=== PATIENT | female | born 1965 | race Caucasian/White ===

== ENCOUNTER → 2022-07-22 11:21 | Outpatient (CLI) | payer OTHER, SELFPAY ==
--- NOTE | ~2022-07-22 | US_ITS ---
Pelvic ultrasound. Clinical History: Postmenopausal bleeding Technique: Realtime transabdominal and transvaginal scanning of the pelvis was performed. Color flow Doppler and Doppler spectral analysis were performed. Findings: The uterus is anteverted. The endometrial stripe has a thickness of 7 mm. No focal mass is identified. Neither ovary seen. No adnexal mass seen. There is no evidence of free fluid in the cul de sac. Impression: Minimal thickening of the individual stripe to 7 mm. Additional workup to evaluate for endometrial hy perplasia versus endometrial neoplasm is advised. Reviewed, dictated and finalized at location [facility]. [facility] Impression: Minimal thickening of the individual stripe to 7 mm. Additional workup to evalu ate for endometrial hyperplasia versus endometrial neoplasm is advised.
== END ==
PROVIDERS: PCP Obstetrics & Gynecology Gynecology; Visit Provider Obstetrics & Gynecology Gynecology
DX: N95.0 Postmenopausal bleeding (principal)
CPT/HCPCS: 76830

== ENCOUNTER 2022-08-11 01:01 | Day surgery (SDC) | payer OTHER, SELFPAY ==
[2022-08-06 09:15] VITALS: BMI 40.8
--- NOTE | 2022-08-06 09:20 | PC.NURSE ---
Report to the Outpatient Waiting Room, entrance under the green pavilion located off [facility], at time 0900 on date 08/11/22. Planned Procedure Time: 1100. Time changes happen often and if your time is changed the preop area will call you the afternoon before. - You and your visitor will be asked to self-screen and do not enter if you have any COVID symptoms. - Only one visitor is requested with a max of two and NO children visitors are allowed at this time. - The patient visitor may be requested to leave or wait in car when not with patient due to distancing restrictions. - A mask is optional within the hospital at this time. Patients may have clear liquids (water, carbonated beverages, clear teas, apple juice) until 3 hours prior to surgery with a maximum of 20 ounces. - No food from midnight until time of surgery Take the following medications with a SIP of water the morning of surgery: INHALER IF NEEDED DO NOT STOP ANY OF YOUR OTHER PRESCRIPTION MEDICATIONS PRIOR TO SURGERY EXCEPT THE FOLLOWING Medications to discontinue per physician: VITAMINS/SUPPLEMENTS Date to take last dose: 08/07/22 Please no make-up, nail vietnamese, hairspray, perfume, deodorant, or body powder the day of surgery. No jewelry (including any body piercings) or valuables the day of surgery, leave them at home. Please take a shower or bath the night before, or the morning of, surgery with an antibacterial soap. Wear comfortable, loose fitting clothing. - Jewelry must be removed prior to entering the operating room. Rings and piercings that are not removed may be cut off. - The hospital will not accept responsibility for valuables. - Please leave all valuables, including medications, at home the day of surgery. If you are going home after surgery, a licensed water truck driver must drive you home. - NO public transportation without another adult if you receive anesthesia. - We recommend that an adult stay with you for 24 hours following discharge. - We also recommend that you do not drive, make important decision, drink alcoholic beverages, or take any drugs that were not prescribed by your health care provider for at least 24 hours after your discharge time. Follow any additional instructions given to you from your surgeon. If you or anyone in your household have experienced Covid symptoms in the past week, please notify your surgeon or the nurse liaison at the phone number below for possible testing. Telephone instructions given to PT - MADISON MUNOZ and asked if any additional questions and then verbalized understanding. Patient advised to call surgeon office or pre surgery nurse liaison [phone] if any additional questions.
--- NOTE | 2022-08-11 08:16 | WPDHPUPDATE1 ---
History and Physical Update Update Date/Time: 08/11/22 08:16 History and Physical has been reviewed, including an updated exam of the patient. There are NO changes in the patient's condition. Risks, benefits, and alternatives have been discussed and questions answered. Patient agrees to proceed with procedure.
--- NOTE | 2022-08-11 08:16 | PM.HPGS ---
History of Present Illness History of Present Illness Consent: Risks, benefits, and alternatives have been discussed and questions answered. Patient agrees to proceed with procedure. Chief complaint: post menopausal bleeding Narrative: Candida aGrcia is a 56 year old female with postmenopausal bleeding April of 2022. The patient had 5 days of bleeding began cramping. The patient presented as a new patient July 22, 2022. The pelvic exam revealed a normal exam except for a pinpoint cervical os. Pelvic ultrasound was performed and reveals the endometrium to be thickened at 7mm. It was recommended at that time to proceed with D&C hysteroscopy. Risks of infection, bleeding, perforation, fluid imbalance, and possible pathology are reviewed. Patient voices understanding and agrees to proceed. Review of Systems Review of Systems: not repeated day of surgery; patient states no changes in status PMFSH Past Medical History Medical History (Updated 08/11/22 @ 08:20 by Eda Cisse MD) Asthma Borderline diabetic Depression with anxiety Surgical History Surgical History (Updated 08/11/22 @ 08:19 by Eda Cisse MD) History of x2 History of laparoscopic cholecystectomy Social History Social History Smoking status: Current every day smoker Tobacco type: e-cigarettes/vaping Alcohol intake: current Alcohol use details: VERY RARE Substance use: current Substance use type: marijuana Living arrangements: with family Spiritual care concerns: No Meds Home Medications and Allergies Home Medications Medication Instructions Recorded Confirmed Type albuterol sulfate 90 mcg/actuation 1 puff inhalation QID PRN 08/06/22 08/06/22 History aerosol inhaler Bronchospasm calcium carbonate 500 mg calcium 500 mg PO DAILY 08/06/22 08/06/22 History (1,250 mg) tablet magnesium 250 mg tablet 250 mg PO DAILY 08/06/22 08/06/22 History montelukast 10 mg tablet 10 mg PO DAILY PRN Allergy Symptoms 08/06/22 08/06/22 History (Singulair) zinc gluconate 100 mg tablet 100 mg PO DAILY 08/06/22 08/06/22 History Allergies Allergy/AdvReac Type Severity Reaction Status Date / Time azithromycin Allergy Severe Anaphylaxis Verified 08/11/22 07:06 Exam Const: General: healthy appearing and alert Orientation/consciousness: patient oriented x3 Resp: Effort & Inspection: normal respiratory effort GI: GI Palp: Yes Soft to palpation, No Tenderness to palpation present (GI) and No Palpable mass present : External Female Exam: normal external appearance Speculum Exam - Vagina: normal appearance of the vagina and normal vaginal discharge Speculum Exam - Cervix: normal appearance of the cervix Bimanual exam- vagina & uterus: uterine size normal and consistency normal Bimanual Exam- Adnexa, other: normal adnexae and No adnexal tenderness Neuro: General: patient oriented x3 Assessment and Plan Assessment and plan (1) Post-menopausal bleeding: Code(s): N95.0 - Postmenopausal bleeding Status: Acute Assessment and Plan: plan to proceed with D&C hysteroscopy
[2022-08-11 09:08] VITALS: BP 127/58; PULSE 62; RESP 18; TEMP 36.2; O2SAT 97
[2022-08-11] MEDS: ACETAMINOPHEN 500 MG TABLET 1000 MG PO (09:31)
[2022-08-11] MEDS: LACTATED RINGERS 1,000 ML 30 ML IV CONT (09:40)
--- NOTE | 2022-08-11 10:13 | P.PNAN_ITS ---
Anes - Initial Pre Proc Eval Procedure: Operation Date: 08/11/22 11:00 Proposed Procedures p Hysteroscopy, Dilation and Curettage - Eda Cisse MD Date/Time: 08/11/22 10:13 Surgeon: Eda Cisse MD Pre Op Diagnosis: post menopausal bleeding Patient Data Age: 56 Gender: F Height: 1.61 m Weight: 101.3 kg Last Vital Signs Temp 36.2 C L 08/11/22 09:08 Pulse 62 08/11/22 09:08 Resp 18 08/11/22 09:08 BP 127/58 L 08/11/22 09:08 Pulse Ox 97 08/11/22 09:08 O2 Del Method Room Air 08/11/22 09:08 Allergies Allergy/AdvReac Type Severity Reaction Status Date / Time azithromycin Allergy Severe Anaphylaxis Verified 08/11/22 07:06 Home Medications Medication Instructions Recorded Confirmed Type albuterol sulfate 90 mcg/actuation 1 puff inhalation QID PRN 08/06/22 08/06/22 History aerosol inhaler Bronchospasm calcium carbonate 500 mg calcium 500 mg PO DAILY 08/06/22 08/06/22 History (1,250 mg) tablet magnesium 250 mg tablet 250 mg PO DAILY 08/06/22 08/06/22 History montelukast 10 mg tablet 10 mg PO DAILY PRN Allergy Symptoms 08/06/22 08/06/22 History (Singulair) zinc gluconate 100 mg tablet 100 mg PO DAILY 08/06/22 08/06/22 History Patient hx anesthesia problems: none Family hx anesthesia problems: none Results Review: All pre-operative results and documents have been reviewed as part of the pre- operative evaluation. [facility] Past Medical History Medical History Asthma Borderline diabetic Depression with anxiety Surgical History Surgical History History of x2 History of laparoscopic cholecystectomy Social History Social History Smoking status: Current every day smoker Tobacco type: e-cigarettes/vaping Alcohol intake: current Alcohol use details: VERY RARE Substance use: current Substance use type: marijuana Living arrangements: with family Spiritual care concerns: No Anes - Eval Final PreProcedure Day of Procedure 08/11/22 10:13 Patient weight: obese Heart: regular rate and rhythm Lungs: clear to auscultation Airway: Mallampati scale class II Neurological: alert and oriented Last oral intake: >/= 8 hours ASA classification: III Emergent: no Anesthetic plan: proceed Anesthesia type and monitoring: general GIVS and standard monitoring Results Review: All pre-operative results and documents have been reviewed as part of the pre- operative evaluation. Informed Consent: The patient's anesthetic plan and its attendant risks and benefits were discussed with the patient/family/POA. Questions were solicited and answers provided to the satisfaction of the patient/family/POA.
[2022-08-11] MEDS: KETOROLAC 30 MG/ML VIAL (*BKC) 15 MG IV PUSH (11:20)
[2022-08-11] MEDS: LIDOCAINE HCL 1% PF 30 ML VIAL 10 ML INFILTRATE (11:26)
--- NOTE | 2022-08-11 11:36 | P.OP_ITS ---
Procedure Note - Detailed Date of Procedure 08/11/22 Pre-op Diagnosis post menopausal bleeding Post-op Diagnosis Same Procedure Performed D&C hysteroscopy Surgeon Eda Cisse MD Anesthesia MAC and Local Findings cervix is stenotic; uterus sounds to 10cm; uterus appears grossly normal Description of Procedure The patient is taken to the operating room and placed under anesthesia in the dorsal lithotomy position. She was prepped and draped in usual sterile fashion. Stanford speculum was placed in the vagina and the cervix grasped on the anterior lip with a tenaculum. The cervix is injected in each quadrant with 1% lidocaine. The external os is stenotic. The os Finders are used and the cervix was able to be opened. The uterus was then sounded to 10cm. The cervix is serially dilated to an 8 Hegar. The diagnostic hysteroscope was placed with no abnormalities noted it is removed. The medium sharp curette is used to curette the endometrium until a good uterine cry was noted in all areas. All instruments are removed. Sponge, needle, and instrument counts are correct per the OR staff. The patient is awakened from anesthesia and taken to recovery in stable condition. Estimated Blood Loss 5 Drains No Packing No Pathology Yes ( Endometrial curettings) Complications No immediate complications Condition Stable Disposition PACU
[2022-08-11 11:37] VITALS: BP 135/69; PULSE 54; RESP 14; O2SAT 93
[2022-08-11 12:05] VITALS: BP 143/70; PULSE 41; RESP 14; O2SAT 94
[2022-08-11 12:30] VITALS: BP 138/74; PULSE 50; RESP 14
== END 2022-08-11 12:40 | disposition home or self-care (01) ==
PROVIDERS: Visit Provider Obstetrics & Gynecology Gynecology
PROC: 0U5B8ZZ Destruction of Endometrium, Via Natural or Artificial Opening Endoscopic (ICD-10-PCS; CPT 58563; principal; 2022-08-11 11:00)
DX: N95.0 Postmenopausal bleeding (principal); N85.8 Other specified noninflammatory disorders of uterus; J45.909 Unspecified asthma, uncomplicated; F41.8 Other specified anxiety disorders; F17.290 Nicotine dependence, other tobacco product, uncomplicated; E66.9 Obesity, unspecified; Z68.38 Body mass index [BMI] 38.0-38.9, adult; Z79.51 Long term (current) use of inhaled steroids
CPT/HCPCS: 58558; 88305; A9270; J1885; J2250; J2704; J3010; J7030; J7120

== ENCOUNTER 2024-10-30 09:00 | Emergency (ER) | payer OTHER, SELFPAY ==
--- NOTE | ~2024-10-30 | CT_ITS ---
CT abdomen pelvis w con Ordering provider: Isaac Phelps MD History: 59 years Female with . Abdominal pain . Comparison: None. Technique: CT abdomen and pelvis with IV and without oral contrast. Automated exposure control and it erative reconstruction technique were employed. The dose-length product was 1080.74 mGy-cm. 100 mL Om nipaque 350 was given IV. Findings: VISUALIZED LOWER CHEST: Normal. UPPER ABDOMINAL ORGANS: Liver: Fat infiltration. Hepatomegaly. Gallbladder: Status post cholecystectomy. Ethan hepatis and lesser sac enlarged lymph nodes are noted with the largest measures 2.3 and 1.8 cm. Spleen: Normal. Stomach/duodenum: Normal. Pancreas: Normal. Adrenals: Normal. Kidneys: Small hypodensity seen in the left kidney midpole suggestive of tiny cyst another one is see n in the lower pole. Small cyst is seen in the right kidney midpole. PELVIC ORGANS: The bladder is underfilled. BOWEL AND MESENTERY: Colon: No evidence of diverticulitis. Normal appendix. Small Bowel: Normal. No obstruction. Peritoneum/mesentery: No free air or free fluid. No mesenteric lymphadenopathy. RETROPERITONEUM: Normal aorta. No retroperitoneal lymphadenopathy. Para-aortic lymph node is seen m easuring 1.4 cm. MUSCULOSKELETAL: Superficial soft tissues: Large fat containing hernia is seen in the anterior abdominal wall in the a altagracia of the pelvis. Small defect also seen just above the medial neck. Otherwise, The superficial soft tissues are normal. Bones: Normal spine. Disc protrusion at the level of L4-L5 and L5-S1 is highly suggestive. IMPRESSION: 1. No evidence of appendicitis, diverticulitis or intestinal obstruction. 2. Hepatomegaly. 3. Lymphadenopathy in the ethan hepatis, lesser sac and bilateral atelectatic areas. Clinical correl ation and follow-up advised. Reviewed, dictated and finalized at location A. IMPRESSION: 1. No evidence of appendicitis, diverticulitis or intestinal obstruction. 2. Hepatomegaly. 3. Lymphadenopathy in the ethan hepatis, lesser sac and bilateral atelectatic areas. Clinical correlation and follow-up advised.
--- OUTSIDE RECORDS SUMMARY | 2024-10-30 09:03 | XMS_ITS | Encounter Summary ---
Author Organization [facility] Address [address] [place] [id number] Care Team Providers Care Independent Consultant Name Role Phone Unknown, Notinfile Primary Care Provider Unavail able Reason for Visit * Reason Comments Constipation woke up yesterday wi th abdominal pain, took stool softener. Had BM but still not feeling clear. Experiencing bloating and now diarrhea. Encounter Details Date Type Department Care Team (Late st Contact Info) Description 10/30/2024 8:30 AM CDT Office Visit [facility] at [address] [phone] Kim Arredondo, MARIE [address] [place] [address] [address] [place] [address] Diarrhea, unspecified type (Primary Dx); Abdominal pain; Generalized abdominal tenderness, rebound tenderness presence not specified Social History Tobacco Use Types Packs/Day Years Used Date Smoking Tobacco: Never Assessed Comments Unknown Sex and Gender Information Value Date Recorded Sex Assigned at Not on file Legal Sex Female 7:25 PM CDT Gender Identity Female 03/11/2024 9:34 AM CDT Sexual Orientation Not on file documented as of this encounter Last Filed Vital Signs Vital Sign Reading Time Taken Comments Blood Pressure 136/84 10/30/2024 8:31 AM CDT Pulse 74 10/30/2024 8:31 AM CDT Temperature 36.6 C (97.8 F) 10/30/2024 8:31 AM CDT Respiratory Rate 20 10/30/2024 8:31 AM CDT Oxygen Saturation 99% 10/30/2024 8:31 AM CDT Inhaled Oxygen Concentration - - Weight 99.8 kg (220 lb) 10/30/2024 8:31 AM CDT Height - - Body Mass Index 35.51 02/08/2024 7:33 PM CDT documented in this encounter Plan of Treatment Not on file documented as of this encounter Visit Diagnoses Diagnosis Diarrhea, unspecified type- Primary Abdominal pain Abdominal pain, unspecified site Generalized abdominal tenderness, rebound tenderness presence not specified documented in this encounter Discontinued Medications Medication Sig Discontinue Reason Start Date End Da te predniSONE (DELTASONE) 10 mg tablet Take 4 tablets by mouth x 3 days. Then take 3 tablets by mouth x 3 d. Then take 2 tablets by mouth x 3 d. Then take 1 tablet by mouth x 3 d. Therapy completed 03/11/2024 10/30/2024 documented as of this encounter Care Teams Independent Consultant Relationship Specialty Start Date End Date Unknown, Notinfile PCP - General 02/08/24 documented as of this encounter
--- OUTSIDE RECORDS SUMMARY | 2024-10-30 09:03 | XMS_ITS | Referral Summary ---
Author Organization [facility] [place] [address] Address [address] [place] [id number] Care Team Providers Care Contact Lens Cutter Name Role Phone Unknown, Notinfile Primary Care Provider Unavail able Encounters Date Type Department Care Team Description 10/30/2024 8:30 AM CDT Office Visit [facility] at [address] [phone] Kim Arredondo NP Diarrhea, unspecified type (Primary Dx); Abdominal pain; Generalized abdominal tenderness, rebound tenderness presence not specified from Last 3 Months Allergies Active Allergy Reactions Criticality Noted Date Comments [place] Nut Hives,Rash Medium 09/27/2017 Azithromycin Anaphylaxis High 02/08/2024 Medications albuterol HFA (PROVENTIL HFA,VENTOLIN HFA,PROAIR HFA) 90 mcg/actuation inhalerIndicatio ns:Mild intermittent asthma with exacerbation Inhale 2 puffs every 6 (six) hours as needed for wheezing or shortness of breath 18 g 4 Active budesonide-formo teroL (SYMBICORT) 80-4.5 mcg/actuation inhaler Inhale 2 puffs 2 (two) times a day Rinse mouth with water after use. Do not swallow. 6.9 g 4 Active predniSONE (DELTASONE) 10 mg tablet Take 4 tablets by mouth x 3 days. Then take 3 tablets by mouth x 3 d. Then take 2 tablets by mouth x 3 d. Then take 1 tablet by mouth x 3 d. 30 tablet 4 10/31/19 25 Discontin ued(Thera py completed ) Active Problems No known active problems Social History Tobacco Use Types Packs/Day Years Used Date Smoking Tobacco: Never Assessed Comments Unknown Sex and Gender Information Value Date Recorded Sex Assigned at Not on file Legal Sex Female 7:25 PM CDT Gender Identity Female 03/11/2024 9:34 AM CDT Sexual Orientation Not on file Last Filed Vital Signs Vital Sign Reading Time Taken Comments Blood Pressure 136/84 10/30/2024 8:31 AM CDT Pulse 74 10/30/2024 8:31 AM CDT Temperature 36.6 C (97.8 F) 10/30/2024 8:31 AM CDT Respiratory Rate 20 10/30/2024 8:31 AM CDT Oxygen Saturation 99% 10/30/2024 8:31 AM CDT Inhaled Oxygen Concentration - - Weight 99.8 kg (220 lb) 10/30/2024 8:31 AM CDT Height 167.6 cm (5' 6 ) 02/08/2024 7:33 PM CDT Body Mass Index 35.51 02/08/2024 7:33 PM CDT Plan of Treatment Not on file Insurance [employer] [place] Care Teams Contact Lens Cutter Relationship Specialty Start Date End Date Unknown, Notinfile PCP - General 02/08/24
--- OUTSIDE RECORDS SUMMARY | 2024-10-30 09:03 | XMS_ITS | Clinical Summary ---
Author Organization [facility] [place] [address] Address [address] [place] [phone] Care Team Providers Care Device Sales Consultant Name Role Phone Unknown, Notinfile Primary Care Provider Unavail able Allergies Active Allergy Reactions Criticality Noted Date Comments [place] Nut Hives,Rash Medium 09/27/2017 Azithromycin Anaphylaxis High [...] ) Active Problems No known active problems Encounters Date Type Department Care Team Description 10/30/2024 8:30 AM CDT Office Visit [facility] at [address] [phone] Kim Arredondo NP Diarrhea, unspecified type (Primary Dx); Abdominal pain; Generalized abdominal tenderness, rebound tenderness presence not specified from Last 3 Months Social History Tobacco Use Types Packs/Day Years [...] 02/08/2024 7:33 PM CDT Plan of Treatment Health Maintenance Due Date Last Done Comments Breast Cancer Screening-Mammogram 1967 Cervical Cancer Screening 1967 Colon Cancer Screening-Colonoscopy 1967 Depression Screening 1967 Hepatitis C Screening 1967 Hepatitis B Screening 10/09/1985 Regular Well Visit/Exam 18-64 10/09/1985 Pneumococcal vaccine <65 (1 of 2 - PCV) 10/09/1986 DTaP/Tdap/Td Vaccine (1 - Tdap) 04/13/2016 6, 06/29/2013 Zoster Vaccine (1 of 2) 10/09/2017 Covid-19 Vaccine (3 - season) 2024, 11/28/2020 Influenza Vaccine (Season Ended) [address] [facility] [employer] [place] Care Teams Device Sales Consultant Relationship Specialty Start Date End Date Unknown, Notinfile PCP - General 02/08/24
[2024-10-30 09:08] VITALS: BP 152/78; PULSE 69; RESP 16; TEMP 36.7; O2SAT 97
--- NOTE | 2024-10-30 10:02 | ED.ABDPAIN ---
HPI - Abdominal Pain General Chief Complaint: Abdominal Pain Stated Complaint: abd. pain x1 day Time Seen by Provider: 10/30/24 10:02 Source: patient Mode of arrival: ambulatory Limitations: no limitations History of Present Illness HPI narrative: 59 years old white female came to the ED by private car complaining of intermittent abdominal pain mainly right lower quadrant started 1 month ago Patient denies any fever, chills, nausea, vomiting or urinary symptoms. History of cholecystectomy and section x2 and asthma,. Related Data Home Medications ?Medication ?Instructions ?Recorded ?Confirmed ?Last Taken ?Type albuterol sulfate 90 mcg/actuation 1 puff inhalation QID PRN 08/06/22 08/06/22 Unknown History aerosol inhaler Bronchospasm calcium carbonate 500 mg PO DAILY 08/06/22 08/06/22 Unknown History magnesium 250 mg tablet 250 mg PO DAILY 08/06/22 08/06/22 Unknown History montelukast 10 mg tablet 10 mg PO DAILY PRN Allergy Symptoms 08/06/22 08/06/22 Unknown History (Singulair) zinc gluconate 100 mg tablet 100 mg PO DAILY 08/06/22 08/06/22 Unknown History Allergies Allergy/AdvReac Type Severity Reaction Status Date / Time azithromycin Allergy Severe Anaphylaxis Verified 10/30/24 09:01 Review of Systems Review of Systems: All systems reviewed & are unremarkable except as noted in HPI and below PMFSH Past Medical History Medical History Borderline diabetic Asthma Depression with anxiety Surgical History Surgical History History of laparoscopic cholecystectomy History of x2 Social History Social History Smoking status: Current every day smoker Tobacco type: e-cigarettes/vaping Alcohol intake: current Alcohol use details: VERY RARE Substance use: current Substance use type: marijuana Living arrangements: with family Spiritual care concerns: No Exam Narrative: General appearance: Well-developed, well-nourished Skin: Normal color Head: Normocephalic, nontraumatic Eyes: Clear conjunctiva ENT: Oropharynx normal, ears normal, nose normal Neck: Supple, nontender Chest and respiratory: Airway patent, no respiratory distress, no accessory muscle use Heart: Regular rate/rhythm Abdomen: Soft, right lower quadrant tenderness, no guarding or rebound, no organomegaly, quiet bowel sounds Vascular: Normal peripheral pulses, normal capillary refill. Musculoskeletal: Normal range of motion, nontender back Neurologic: Alert and oriented ?3, POURED WALL FOREMAN is normal as tested, no gross motor deficit Course Vital Signs Vital signs: Vital Signs Temperature 36.7 C 10/30/24 09:08 Pulse Rate 69 10/30/24 09:08 Respiratory Rate 16 10/30/24 09:08 Blood Pressure 152/78 H 10/30/24 09:08 Pulse Oximetry 97 10/30/24 09:08 Temperature 36.7 C 10/30/24 09:08 Pulse Rate 67 10/30/24 13:00 Respiratory Rate 18 10/30/24 13:00 Blood Pressure 121/73 10/30/24 13:00 Pulse Oximetry 95 10/30/24 13:00 MDM - Abdominal Pain MDM Narrative Medical decision making narrative: Patient presents with right lower quadrant pain Vital signs are stable Physical examination showing tenderness right lower quadrant Differential diagnosis include diverticulitis, colitis, constipation, urinary tract infection, appendicitis Blood workup today includes CBC, CMP, lipase showed GLUCOSE 234, OTHERWISE INSIGNIFICANT ABNORMALITY Urinalysis showed NO ACUTE ABNORMAL CT abdomen and pelvis with IV contrast showed NO SIGNIFICANT ABNORMALITIES DIAGNOSIS ABDOMINAL PAIN OF UNKNOWN ETIOLOGY DISCHARGED HOME, FOLLOW-UP WITH PACK OPERATOR, DISCHARGED ON [place] Differential Diagnosis Differential diagnosis: Likely other (As above) Medical Records Attestation: I reviewed the patient's medical records. Lab Data Attestation: I reviewed the patient's lab results. 10/30/24 10:30 10/30/24 10:48 Labs: Lab Results 10/30/24 10/30/24 Range/Units 10:30 10:48 WBC 8.8 (4.5-10.0) K/mm3 RBC 4.90 (4.2-5.4) M/mm3 Hgb 14.6 (12.0-15.0) g/dL Hct 44.0 (37.0-47.0) % MCV 89.8 (80-100) fl MCH 29.8 (26-34) pg MCHC 33.2 (32-36) g/dl RDW 12.8 (11.5-14.5) % Plt Count 161 (150-375) k/mm3 MPV 12.1 H (7.4-10.4) fl Immature Gran % (Auto) Not Reportable Neut % (Auto) Not Reportable Lymph % (Auto) Not Reportable [place] % (Auto) Not Reportable Eos % (Auto) Not Reportable Baso % (Auto) Not Reportable Lymph # (Auto) Not Reportable [place] # (Auto) Not Reportable Eos # (Auto) Not Reportable Baso # (Auto) Not Reportable Abs Immat Gran (auto) Not Reportable Absolute Neuts (auto) Not Reportable Absolute Nucleated RBC Not Reportable Total Counted 100 Neutrophils % (Manual) 61 (46-73) % Band Neutrophils % 1 (0-6) % Lymphocytes % (Manual) 30 (18-44) % Monocytes % (Manual) 3 (3-9) % Eosinophils % (Manual) 5 H (0-4) % Basophils % (Manual) 0 (0-1) % Nucleated RBC % Not Reportable Abs Neuts (Manual) 5.45 (1.7-7.2) K/mm3 Abs Lymphs (Manual) 2.64 (1.1-4.5) K/mm3 Abs Monocytes (Manual) 0.26 (0.1-0.90) K/mm3 Absolute Eos (Manual) 0.44 (0.02-0.50) K/mm3 Abs Basophils (Manual) 0.00 (0.0-0.1) K/mm3 Platelet Estimate Adequate (Adequate) Large Platelets Present Giant Platelets Present % Immature Plt Fraction 16.2 H (0.9-11.2) % Schistocytes None seen Sodium 138 (137-145) mmol/L Potassium 4.0 (3.4-5.0) mmol/L Chloride 104 (98-107) mmol/L Carbon Dioxide 21 L (22-30) mmol/L Anion Gap 13 H (4-12) mmol/L BUN 11 (7-17) mg/dL Creatinine 0.45 L (0.7-1.0) mg/dL Estim Creat Clear Calc 131 ml/min Estimated GFR > 60 (59 - ) Glucose 234 H (65-110) mg/dL Calcium 9.9 (8.4-10.2) mg/dL Total Bilirubin 0.6 (0.2-1.3) mg/dL AST 41 H (14-36) U/L ALT 50 H (6-35) U/L Alkaline Phosphatase 141 H (38-126) U/L Total Protein 8.0 (6.3-8.2) g/dL Albumin 4.3 (3.5-5.1) g/dL Lipase 38 (23-300) U/L Urine Color Yellow (Yellow) Urine Appearance Clear (Clear) Urine pH 5.0 (5.0-9.0) Ur Specific [place] 1.024 (1.001-1.035) Urine Protein 1+ H (Negative) mg/dL Urine Glucose (UA) 1+ H (Negative) mg/dL Urine Ketones Trace H (Negative) mg/dL Ur Blood (Man) Negative (Negative) Urine Nitrate Negative (Negative) Urine Bilirubin Negative (Negative) Urine Urobilinogen 0.2 (<2.0) mg/dL Add Ur Microanalysis Reviewed Leukocyte Esterase Rfl Negative (Negative) NEETA/UL Urine RBC 0-2 (0-2) /hpf Urine WBC 0-5 (0-3) /hpf Ur Squamous Epith Cells Occasional (Few) /hpf Urine Bacteria Rare /hpf Urine Casts 6-10 Hyaline Casts Present (None) /lpf Urine Mucus Present /lpf Imaging Data Radiologist's impression: ITS Impressions Abdomen/Pelvis CT 10/30/24 12:47 IMPRESSION: 1. No evidence of appendicitis, diverticulitis or intestinal obstruction. 2. Hepatomegaly. 3. Lymphadenopathy in the ethan hepatis, lesser sac and bilateral atelectatic areas. Clinical correlation and follow-up advised. Critical Care Time Critical Care Time Critical Care Time: No Discharge Plan Discharge Clinical Impression: Abdominal pain Patient Disposition: Home Condition: Stable Instructions: Abdominal Pain (ED) Additional Instructions: RETURN IF SYMPTOMS ARE WORSENING , CALL YOUR FAMILY PHYSICIAN, DR. SOW FOR APPOINTMENT, TAKE TYLENOL NEEDED FOR ACHES AND PAIN, CONTINUE HOME MEDICATIONS. Patient Language: [place] Prescriptions: New dicyclomine 20 mg tablet 20 mg PO QID Qty: 20 0RF No Action montelukast [Singulair] 10 mg Tablet 10 mg PO DAILY PRN (Reason: Allergy Symptoms) albuterol sulfate 90 mcg/actuation Hfa Aerosol Inhaler 1 puff INHALATION QID PRN (Reason: Bronchospasm) zinc gluconate [Zinc Natural] 100 mg Tablet 100 mg PO DAILY calcium carbonate [Calcium 500] 500 mg calcium (1,250 mg) Tablet 500 mg PO DAILY magnesium 250 mg Tablet 250 mg PO DAILY Follow-up/Referrals: PHYSICIAN,DIRECTOR OF ASSISTED LIVING [Primary Care Provider] - Darrion Keyes MD [Physician] - 11/03/24
--- OUTSIDE RECORDS SUMMARY | 2024-10-30 10:07 | XMS_ITS | Encounter Summary ---
Author Organization [facility] Healthcare Address [address] [place] [id number] Care Team Providers Care Compound Mixer Name Role Phone Unknown, Notinfile Primary Care Provider Unavail able Reason for Visit * Reason Comments Constipation woke up yesterday wi th abdominal pain, took stool softener. Had BM but still not feeling clear. Experiencing bloating and now diarrhea. Encounter Details Date Type Department Care Team (Late st Contact Info) Description 10/30/2024 8:30 AM CDT Office Visit [facility] at [address] [phone] Kim Arredondo, MARIE [address] [place] [address] [address] [place] [address] Diarrhea, unspecified type (Primary Dx); [...] documented as of this encounter Care Teams Compound Mixer Relationship Specialty Start Date End Date Unknown, Notinfile PCP - General 02/08/24 documented as of this encounter
--- OUTSIDE RECORDS SUMMARY | 2024-10-30 10:07 | XMS_ITS | Referral Summary ---
Author Organization [facility] [address] Address [address] [place] [phone] Care Team Providers Care Process Safety Specialist Name Role Phone Unknown, Notinfile Primary Care Provider Unavail able Encounters Date Type Department Care Team Description 10/30/2024 8:30 AM CDT Office Visit [facility] at [address] [phone] Kim Arredondo NP Diarrhea, unspecified type (Primary Dx); Abdominal pain; Generalized abdominal tenderness, rebound tenderness presence not specified from Last 3 Months Allergies Active Allergy Reactions Criticality Noted Date Comments [place] Nut Hives,Rash Medium 09/27/2017 Azithromycin Anaphylaxis High [...] Plan of Treatment Not on file Insurance [facility] [employer] [place] Care Teams Process Safety Specialist Relationship Specialty Start Date End Date Unknown, Notinfile PCP - General 02/08/24
--- OUTSIDE RECORDS SUMMARY | 2024-10-30 10:07 | XMS_ITS | Clinical Summary ---
Author Organization [facility] [address] Address [address] [place] [phone] Care Team Providers Care Commercial Loan Coordinator Name Role Phone Unknown, Notinfile Primary Care Provider Unavail able Allergies Active Allergy Reactions Criticality Noted Date Comments [place] Nut Hives,Rash Medium 09/27/2017 Azithromycin Anaphylaxis High [...] Description 10/30/2024 8:30 AM CDT Office Visit [facility] at [address] [phone] Kim Arredondo NP Diarrhea, unspecified [...] AM CDT Sexual Orientation Not on file Obstetrics History Last Filed Vital Signs Vital Sign Reading [...] 11/28/2020 Influenza Vaccine (Season Ended) 2025 Insurance [facility] [employer] Care Teams Commercial Loan Coordinator Relationship Specialty Start Date End Date Unknown, Notinfile PCP - General 02/08/24
[2024-10-30] MEDS: SODIUM CHLORIDE 0.9% IV 1,000 ML 999 ML IV CONT (10:16)
[2024-10-30 10:39] LABS: Hemoglobin 14.6 g/dL (12.0-15.0); Immature Platelet Fraction Pct 16.2 % (0.9-11.2); Mean Corpuscular HGB Conc 33.2 g/dl (32-36); Mean Corpuscular Hemoglobin 29.8 pg (26-34); Mean Corpuscular Volume 89.8 fl (80-100); Mean Platelet Volume 12.1 fl (7.4-10.4); Platelet Count Result 161 k/mm3 (150-375); Red Cell Distribution Width 12.8 % (11.5-14.5); White Blood Count 8.8 K/mm3 (4.5-10.0)
[2024-10-30 10:52] LABS: Add Urine Microscopic? YES; Appearance Urine Clear (Clear); Bacteria Urine Rare /hpf; Bilirubin Urine Negative (Negative); Blood Urine Negative (Negative); Color Urine Yellow (Yellow); Glucose Urine UA 1+ mg/dL (Negative); Hyaline Casts Urine Present /lpf; Ketones Urine Trace mg/dL (Negative); Leukocyte Esterase Ur Negative LEU/UL (Negative); Mucus Urine Present /lpf; Need Manual Microscopic Reviewed; Nitrate Urine Negative (Negative); Protein Urine 1+ mg/dL (Negative); RBC Urine 0-2 /hpf (0-2); Specific Grav Ur 1.024 (1.001-1.035); Squamous Epithelial Cell Urine Occasional /hpf (Few); Urobilinogen Urine 0.2 mg/dL (<2.0); WBC Urine 0-5 /hpf (0-3)
[2024-10-30 11:06] LABS: Alanine Aminotransferase 50 U/L (6-35); Albumin Level 4.3 g/dL (3.5-5.1); Alkaline Phosphatase 141 U/L (38-126); Anion Gap 13 mmol/L (4-12); Aspartate Amino Transferase 41 U/L (14-36); Bilirubin,Total 0.6 mg/dL (0.2-1.3); Blood Urea Nitrogen 11 mg/dL (7-17); Calcium 9.9 mg/dL (8.4-10.2); Carbon Dioxide 21 mmol/L (22-30); Chloride 104 mmol/L (98-107); Estimated CRCL calculation 131 ml/min; Estimated Glomerular Filt Rate > 60; Glucose 234 mg/dL (65-110); Lipase 38 U/L (23-300); Sodium 138 mmol/L (137-145)
[2024-10-30 11:10] LABS: Band Neutrophils Percent 1 % (0-6); Basophils Percent Manual 0 % (0-1); Eosinophils Absolute Manual 0.44 K/mm3 (0.02-0.50); Eosinophils Percent Manual 5 % (0-4); Giant Platelets Present; Large Platelets Present; Lymphocytes Absolute Manual 2.64 K/mm3 (1.1-4.5); Lymphocytes Percent Manual 30 % (18-44); Monocytes Absolute Manual 0.26 K/mm3 (0.1-0.90); Monocytes Percent Manual 3 % (3-9); Neutrophils Absolute Manual 5.45 K/mm3 (1.7-7.2); Neutrophils Percent Manual 61 % (46-73); Platelet Estimate Adequate (Adequate); Schistocytes None Seen; Total Cells Counted 100
[2024-10-30 13:00] VITALS: BP 121/73; PULSE 67; RESP 18; O2SAT 95
== END 2024-10-30 14:55 | disposition home or self-care (01) ==
PROVIDERS: Emergency Provider Emergency Medicine
DX: R10.31 Right lower quadrant pain (principal); J45.909 Unspecified asthma, uncomplicated; R73.03 Prediabetes
CPT/HCPCS: 36415; 74177; 80053; 81001; 83690; 85025; 85055; 96360; 99284; J7030; Q9967

== ENCOUNTER 2025-04-11 11:31 | Outpatient (CLI) | payer OTHER, SELFPAY ==
--- NOTE | ~2025-04-11 | DEXA_ITS ---
Bone Density Report Name: MADISON MUNOZ Age: 59 Sex: Female Ethnicity: White Date of : 1965 Indication: postmenopausal; screening for osteoporosis; parental hip fracture; asthma or emphysema; Referring Provider: Eda Cisse Study: Bone densitometry was performed. Exam Date: April 11, 2025 Accession number: [id number] Bone Density: Region BMD T-score Z-score Classification AP Spine(L1-L4) 0.985 -0.6 0.7 Normal Femoral Neck (Left) 0.684 -1.5 -0.3 Osteopenia Total Hip (Left) 1.073 1.1 1.9 Normal Femoral Neck (Right) 0.796 -0.5 0.7 Normal Total Hip (Right) 1.024 0.7 1.5 Normal Femoral Neck Mean 0.740 -1.0 0.2 Normal Total Hip Mean 1.048 0.9 1.7 Normal World Health Organization criteria for BMD impression classify patients as: Normal (T-score at or above -1.0), Osteopenia (T-score between -1.0 and -2.5), or Osteoporosis (T-score at or below -2.5). 10-year Fracture Risk(1): Major Osteoporotic Fracture 13% Hip Fracture 0.9% Reported Risk Factors: [place] (), Neck BMD=0.684, BMI=39.5, parental fracture, smoking (1) FRAX(R) Version 3.08. Fracture probability calculated for an untreated patient. Fracture probability may be lower if the patient has received treatment. Clinical Information Provided by Patient: Parent has had a hip fracture Smokes Has used the following medications: Calcium Has the following medical conditions: Asthma or Emphysema Patient maximum height was 62.6 Menopause Age: 54 No regular weight bearing exercise Drinks caffeinated beverages Onset of menses at age 14 Number of children 2 Impression: The patient has low bone mass, based on the Left Femoral Neck T-score. The patient has risk factors, including: parental hip fracture, smoking. Discussion: BONE DENSITY IS LOW AT ONE OR MORE SKELETAL SITES. This patient's lowest T-score is low at one or more skeletal sites. It meets the World Health Organization's (WHO) criteria for ?low bone mass? (T-score between -1.0 and -2.5). The patient's 10-year risk of fracture as calculated by FRAX is less than the threshold where pharmacological therapy is recommended by the National Osteoporosis Foundation (NOF). However, all treatment decisions require clinical judgment and consideration of individual patient factors, including patient preferences, comorbidities, previous drug use, risk factors not captured in the FRAX model (e.g., frailty, falls, vitamin D deficiency, increased bone turnover, interval significant decline in bone density) and possible under or overestimation of fracture risk by FRAX. The patient should follow a healthful lifestyle (good nutrition with adequate calcium and vitamin D, and appropriate weight-bearing exercise). Follow-Up: Consider repeating this study in 2 to 3 years to reassess this patient's status, or sooner if there is some new clinical indication. Reported by: ILSA on 04/11/2025 12:28:00 PM. Reviewed, dictated and finalized at location A.
--- NOTE | ~2025-04-11 | MM_ITS ---
EXAMINATION: MM screening keegan BI w maggie HISTORY: Screening TECHNIQUE: Craniocaudal and mediolateral oblique 3-D tomosynthesis images were obtained and synthetic 2-D images were generated. CAD analysis was submitted and interpreted. COMPARISON: No prior mammogram is available for comparison at this institution. BREAST PARENCHYMAL COMPOSITION: There are scattered areas of fibroglandular density. FINDINGS: There is no evidence of suspicious calcification, or architectural distortion to suggest malignancy. Mass in the left breast at the 6:00 position middle depth. Prominent bilateral axillary lymph nodes. IMPRESSION: 1. Mass in the left breast at the 6:00 position. The study is incomplete. A diagnostic mammogram and a diagnostic ultrasound are recommended. 2. Prominent bilateral axillary lymph nodes. The study is incomplete. A diagnostic mammogram and a diagnostic ultrasound are recommended. BI-RADS 0: Incomplete-Need additional imaging evaluation. Reviewed, dictated and finalized at location Q. IMPRESSION: 1. Mass in the left breast at the 6:00 position. The study is incomplete. A luz gnostic mammogram and a diagnostic ultrasound are recommended. 2. Prominent bilateral axillary lymph nodes. The study is incomplete. A diagnos tic mammogram and a diagnostic ultrasound are recommended. BI-RADS 0: Incomplete-Need additional imaging evaluation.
== END 2025-04-11 11:32 | disposition home or self-care (01) ==
PROVIDERS: PCP Obstetrics & Gynecology Gynecology; Visit Provider Obstetrics & Gynecology Gynecology
DX: Z12.31 Encounter for screening mammogram for malignant neoplasm of breast (principal); Z78.0 Asymptomatic menopausal state; M85.88 Other specified disorders of bone density and structure, other site; R92.8 Other abnormal and inconclusive findings on diagnostic imaging of breast
CPT/HCPCS: 77063; 77067; 77080

== ENCOUNTER 2025-05-08 08:50 | Outpatient (CLI) | payer OTHER, SELFPAY ==
--- NOTE | ~2025-05-08 | MMUS_ITS ---
EXAMINATION: MM diagnostic keegan LT w maggie, US breast LT limited HISTORY: Follow-up left breast mass. Prominent bilateral axillary lymph nodes. TECHNIQUE: Additional 3-D tomosynthesis images of the left breast were performed and synthetic 2-D images were generated. CAD analysis was submitted and interpreted. High resolution bilateral axillary ultrasound was performed. COMPARISON: 04/11/2025 BREAST PARENCHYMAL COMPOSITION: Not dense: There are scattered areas of fibroglandular density. FINDINGS: MAMMOGRAPHIC FINDINGS: There is a circumscribed low-density mass in the lower central aspect of the left breast, middle third. There are no suspicious calcifications or architectural distortion. ULTRASOUND: Bilateral axillary and Limited left breast ultrasound: There are bilateral axillary lymph nodes which appear to have normal fatty vincenzo, largest in the left axilla measuring 3.1 x 1.6 x 1 cm, likely reactive. In the left breast at 7:00, 7 cm from the nipple there is a slightly irregular shape 7 mm cyst which appears benign. This likely corresponds to the mammographic finding. IMPRESSION: 1. Probable benign bilateral breast findings. 2. Recommend 6 month follow-up diagnostic left mammogram and bilateral ultrasound recommended. BI-RADS category 3, probably benign findings. Reviewed, dictated and finalized at location B. T AID TRAINER IMPRESSION: 1. Probable benign bilateral breast findings. 2. Recommend 6 month follow-up diagnostic left mammogram and bilateral ultrasou nd recommended. BI-RADS category 3, probably benign findings.
--- OUTSIDE RECORDS SUMMARY | 2025-05-08 09:15 | XMS_ITS | Clinical Summary ---
Author Organization [facility] [address] Address [address] [place] [phone] Care Team Providers Care Educational Aid Name Role Phone Unknown, Notinfile Primary Care Provider Unavail able Allergies Active Allergy Reactions Criticality Noted Date Comments [place] Nut Hives,Rash Medium 09/27/2017 Azithromycin Anaphylaxis High 02/08/2024 Medications albuterol HFA (PROVENTIL HFA,VENTOLIN HFA,PROAIR HFA) 90 mcg/actuation inhalerIndication s:Mild intermittent asthma with exacerbation Inhale 2 puffs every 6 (six) hours as needed for wheezing or shortness of breath 18 g 4 Active budesonide-formot Aracely (SYMBICORT) 80-4.5 mcg/actuation inhaler Inhale 2 puffs 2 (two) times a day Rinse mouth with water after use. Do not swallow. 6.9 g 4 Active Active Problems No known active problems Social [...] 8:31 AM CDT Height 167.6 cm (5' 6) 02/08/2024 7:33 PM CDT Body Mass Index [...] 2) 10/09/2017 Covid-19 Vaccine (3 - season) 2025, 11/28/2020 Influenza Vaccine (#1) 2025 Insurance [facility] [employer] [place] Care Teams Educational Aid Relationship Specialty Start Date End Date Unknown, Notinfile PCP - General 02/08/24
== END 2025-05-08 08:51 | disposition home or self-care (01) ==
LOC: CHSIMG 08:52
PROVIDERS: PCP Family Medicine; Visit Provider Obstetrics & Gynecology Gynecology
DX: R92.8 Other abnormal and inconclusive findings on diagnostic imaging of breast (principal)
CPT/HCPCS: 76642; 76882; 77061; 77065; G0279